=== PATIENT | male | born 1980 | race Caucasian/White ===

== ENCOUNTER → 2022-09-03 | Outpatient (CLI) | payer OTHER | END | disposition home or self-care (01) | LOC: RADMN 09:33 | PROVIDERS: ATTEND Anesthesiology Pain Medicine | DX: M79.661 Pain in right lower leg (principal) | CPT/HCPCS: 73718 ==

== ENCOUNTER → 2022-12-21 | Outpatient (CLI) | payer OTHER ==
[2022-12-21 12:05] LABS: ALBUMIN 4.1 g/dL (3.4-5.0); BILIRUBIN,DIRECT 0.2 mg/dL (0.00-0.20); BILIRUBIN,TOTAL 0.8 mg/dL (0.1-1.0); TOTAL PROTEIN, SERUM 7.6 g/dL (6.4-8.2)
== END | disposition home or self-care (01) ==
LOC: LABMN 11:02
PROVIDERS: ATTEND Chiropractor
DX: K73.9 Chronic hepatitis, unspecified (principal)
CPT/HCPCS: 80076